=== PATIENT | female | born 1965 | race Caucasian/White ===

== ENCOUNTER → 2018-09-09 | Outpatient (CLI) | payer OTHER ==
[~2018-09-09] MED LIST: LIDOCAINE 1% 300 MG/30 ML SDV ONE
== END ==
LOC: FIMAGING 12:14
PROVIDERS: ATTEND Otolaryngology
DX: K11.9 Disease of salivary gland, unspecified (principal); E04.1 Nontoxic single thyroid nodule

== ENCOUNTER → 2018-09-14 | Outpatient (CLI) | payer OTHER | LOC: BMCIMAGING 13:22 | PROVIDERS: ATTEND Internal Medicine | DX: M50.322 Other cervical disc degeneration at C5-C6 level (principal) ==